=== PATIENT | male | born 1985 | race Caucasian/White ===

== ENCOUNTER 2022-08-30 14:38 | Emergency (ER) | payer SELFPAY ==
[~2022-08-30] VITALS: Ht 167.6 cm; Wt 75.0 kg
[2022-08-30 14:52] VITALS: BP 117/72
[2022-08-30] MEDS ORDERED: BACITRACIN ZINC OINT UDPKT TOP ONE (16:45)
[2022-08-30] MEDS ORDERED: LIDOCAINE HCL/PF 1% 10 MG/ML 5ML VIAL INFIL ONE (16:45)
[2022-08-30] MEDS ORDERED: TETANUS, DIPHTHERIA, PERTUSSIS VAC/PF 0.5ML (>10YR OLD) IM ONE (16:45)
[2022-08-30] MEDS ORDERED: IBUPROFEN 600MG TABLET PO ONE (16:45)
[2022-08-30] MEDS ORDERED: BO1 TP (16:54)
[2022-08-30] MEDS ORDERED: IBUP-2029 MT (16:54)
== END 2022-08-30 17:55 | disposition home or self-care (01) ==
LOC: ER 14:38
DX: S01.112A Laceration without foreign body of left eyelid and periocular area, initial encounter (principal); W01.198A Fall on same level from slipping, tripping and stumbling with subsequent striking against other object, initial encounter; Y93.89 Activity, other specified; Y92.89 Other specified places as the place of occurrence of the external cause
CPT/HCPCS: 12013; 90471; 90715; 99283; J3490; Z7610

== ENCOUNTER 2022-11-20 00:57 | Emergency (ER) | payer OTHER ==
[~2022-11-20] VITALS: Ht 167.6 cm; Wt 75.0 kg
[~2022-11-20 00:57] MED LIST: BO1 TP; IBUP-2029 MT
[2022-11-20] MEDS ORDERED: LIDOCAINE HCL/PF 1% 10 MG/ML 5ML VIAL INFIL ONE (01:45)
[2022-11-20] MEDS ORDERED: WATER FOR IRRIGATION,STERILE 1,000 ML IRRIG.SOLN IR NR (01:45)
[2022-11-20] MEDS ORDERED: BACITRACIN ZINC OINT UDPKT TOP ONE (01:45)
[2022-11-20 02:15] LABS: BASOPHILS % 0.8 % (0.0-2.0); EOSINOPHILS % 4.4 % (0.0-5.0); HEMATOCRIT. 39.3 % (42.0-52.0); HEMOGLOBIN. 13.7 g/dL (14.0-18.0); LYMPHOCYTES % 28.6 % (20.0-50.0); MEAN CORPUSCULAR HEMOGLOBIN 31.2 pg (28.0-32.0); MEAN CORPUSCULAR VOLUME 89.5 fL (80.0-94.0); MEAN PLATELET VOLUME 9.6 fl (7.4-10.4); NEUTROPHILS % 56.2 % (40.0-76.0); PLATELET 231 x1000/uL (130-400); RED CELL DISTRIBUTION WIDTH 13.1 % (11.6-14.6)
[2022-11-20 02:38] LABS: CHLORIDE 99 mEq/L (98-107)
[2022-11-20 02:46] LABS: ETHANOL BLOOD 231 mg/dL
[2022-11-20 02:49] LABS: *AMPHETAMINES SCREEN URINE PRESUMTIVE POSITIVE (NEGATIVE); *BARBITURATES SCREEN URINE NEGATIVE (NEGATIVE); *BENZODIAZEPINES SCREEN URINE NEGATIVE (NEGATIVE); *COCAINE SCREEN URINE NEGATIVE (NEGATIVE); CANNABINOID URINE SCREEN NEGATIVE (NEGATIVE); METHADONE URINE SCREEN NEGATIVE (NEGATIVE); OPIATES URINE SCREEN NEGATIVE (NEGATIVE); PHENCYCLIDINE URINE SCREEN NEGATIVE (NEGATIVE)
[2022-11-20] MEDS ORDERED: BO1 TP (03:37)
[2022-11-20 03:58] VITALS: BP 110/90
== END 2022-11-20 04:00 ==
LOC: ER 00:57
DX: S01.01XA Laceration without foreign body of scalp, initial encounter (principal); S09.8XXA Other specified injuries of head, initial encounter; S60.511A Abrasion of right hand, initial encounter; Y00.XXXA Assault by blunt object, initial encounter; F10.129 Alcohol abuse with intoxication, unspecified; Y90.8 Blood alcohol level of 240 mg/100 ml or more; F15.129 Other stimulant abuse with intoxication, unspecified; Y93.89 Activity, other specified; Y92.018 Other place in single-family (private) house as the place of occurrence of the external cause; Z65.3 Problems related to other legal circumstances
CPT/HCPCS: 12004; 36415; 70450; 73130; 80053; 80305; 80320; 85025; 99285; Z7610; G0480

== ENCOUNTER 2025-04-24 17:47 | Emergency (ER) | payer SELFPAY ==
[~2025-04-24] VITALS: Ht 167.6 cm; Wt 68.0 kg
[2025-04-24 18:00] VITALS: O2SAT 98
[2025-04-24] MEDS ORDERED: DOXY100C5 MT (18:19)
[2025-04-24 18:51] VITALS: BP 124/86; PULSE 72; RESP 14; TEMP 37.2; O2SAT 100
== END 2025-04-24 18:55 | disposition home or self-care (01) ==
LOC: ER 17:47
DX: L92.3 Foreign body granuloma of the skin and subcutaneous tissue (principal); I10 Essential (primary) hypertension
CPT/HCPCS: 99283